=== PATIENT | male | born 1960 | race African-American/Black ===

== ENCOUNTER 2016-04-28 06:54 | Outpatient (CLI) ==
[2013-12-08 08:29] VITALS: BMI 31.0
[2016-04-28 07:51] LABS: ALBUMIN/GLOBULIN RATIO 1.29; ANION GAP 10.2; BILIRUBIN,TOTAL 0.98 mg/dL (0.00-1.20); BUN/CREATININE RATIO 17.24; CALCIUM 9.2 mg/dL (8.2-10.2); CREATININE 0.87 mg/dL (0.60-1.10); POTASSIUM 4.2 mmol/L (3.5-5.1); TOTAL PROTEIN 7.1 g/dL (6.4-8.2)
== END 2016-04-28 06:55 | disposition home or self-care (01) ==
LOC: LAB 06:54
PROVIDERS: ATTEND Family Medicine
DX: E80.6 Other disorders of bilirubin metabolism (principal)
CPT/HCPCS: 36415; 80053

== ENCOUNTER 2016-07-10 16:04 | Outpatient (CLI) ==
[2013-12-08 08:29] VITALS: BMI 31.0
[2016-07-10 16:28] LABS: BASOPHILS % (AUTO) 0.5 % (0.0-3.0); EOSINOPHILS # (AUTO) 0.2 K/ul (0.0-0.7); HEMATOCRIT 39.6 % (42.0-52.0); HEMOGLOBIN 13.4 g/dl (14.0-18.0); IMMATURE GRANULOCYTE % (AUTO) 0.2 % (0.0-5.0); LYMPHOCYTES # (AUTO) 1.7 K/uL (0.60-3.4); LYMPHOCYTES % (AUTO) 39.6 (10.0-50.0); MEAN CORPUSCULAR HEMOGLOBIN 30.6 pg (27.0-31.0); MEAN CORPUSCULAR HGB CONC 33.8 (31.8-35.4); MEAN CORPUSCULAR VOLUME 90.4 fl (80.0-94.0); MONOCYTES # (AUTO) 0.4 K/uL (0.4-2.0); MONOCYTES % (AUTO) 10.4 (0-10); NEUTROPHILS # (AUTO) 1.9 K/ul (2.0-6.9); NEUTROPHILS % (AUTO) 45.3; PLATELET COUNT 210 10^3/uL (140-440); RED BLOOD COUNT 4.38 10^6/ul (4.70-6.10); WHITE BLOOD COUNT 4.22 K/ul (4.2-10.2)
[2016-07-10 16:52] LABS: ALBUMIN 3.9 g/dL (3.4-5.0); ALBUMIN/GLOBULIN RATIO 1.15; ANION GAP 10.8; BILIRUBIN,TOTAL 0.82 mg/dL (0.00-1.20); BUN/CREATININE RATIO 17.04; CALCIUM 9.3 mg/dL (8.2-10.2); CHOL/HDL RATIO 2.7 (4.5-6.4); CREATININE 0.88 mg/dL (0.60-1.10); POTASSIUM 3.8 mmol/L (3.5-5.1); TOTAL PROTEIN 7.3 g/dL (6.4-8.2)
== END 2016-07-10 16:05 | disposition home or self-care (01) ==
LOC: LAB 16:04
PROVIDERS: ATTEND Family Medicine
DX: E78.5 Hyperlipidemia, unspecified (principal); I10 Essential (primary) hypertension; R73.9 Hyperglycemia, unspecified
CPT/HCPCS: 36415; 80053; 80061; 85025

== ENCOUNTER 2016-07-22 08:11 | Outpatient (CLI) ==
[2013-12-08 08:29] VITALS: BMI 31.0
--- NOTE | 2016-07-22 09:19 | DI ---
EXAM: Left knee, four views. HISTORY: Pain. COMPARISON: None. FINDINGS: AP, notch, sunrise and lateral views of the left knee. There are no acute or healing frac tures. There are no lytic or blastic lesions. Soft tissues are normal. There is no joint effusion . Joint narrowing and osteophyte formation is seen in all three compartments. IMPRESSION: 1. No acute fractures. 2. Tricompartmental osteoarthritis.
--- NOTE | 2016-07-22 09:22 | DI ---
EXAM: Right knee, four views. HISTORY: Right knee pain. Knee pain. COMPARISON: None. FINDINGS: AP , sunrise, notch and lateral views of the right knee. There are postoperative changes with hardware in the proximal tibia. The hardware appears intact. There is no surrounding lucency . There are no acute or healing fractures. There are no lytic or blastic lesions. There is no join t effusion. There is a large calcification in the quadriceps tendon. Joint narrowing and osteophyt e formation is seen in all three compartments. There is slight irregularity of the lateral tibial p lateau. Near bone on bone articulation is seen. IMPRESSION: 1. No acute fractures. 2. Tricompartmental osteoarthritis. Findings are most severe in the lateral compartment.
== END 2016-07-22 08:12 | disposition home or self-care (01) ==
LOC: LAB 08:11 → RAD 08:12
PROVIDERS: ATTEND Family Medicine
DX: M17.11 Unilateral primary osteoarthritis, right knee (principal); M25.562 Pain in left knee; M25.561 Pain in right knee

== ENCOUNTER 2016-08-18 10:16 | Outpatient (CLI) ==
[2016-08-18 10:29] VITALS: BMI 31.0
== END 2016-08-18 10:17 | disposition home or self-care (01) ==
LOC: AMBL 10:16
PROVIDERS: ATTEND Internal Medicine
DX: F41.0 Panic disorder [episodic paroxysmal anxiety] (principal)

== ENCOUNTER 2016-08-18 10:29 | Emergency (ER) ==
[2016-08-18 10:29] VITALS: BMI 31.0
[2016-08-18 10:40] VITALS: BP 135/78; TEMP 97.8
--- NOTE | 2016-08-18 11:22 | ED.PDOC ---
General ED Provider: Dr. EMILY BACA Chief Complaint: Psychiatric Complaint Stated Complaint: anxiety Time Seen by Physician: 10:40 (after an argument pt became vey anxious ) Mode of Arrival: Ambulance Information Source: Patient Exam Limitations: No limitations Primary Care Provider: HERNAN LAUREN Nursing and Triage Documentation Reviewed and Agree: Yes Review of Systems - Review Of Systems Constitutional: Reports: No symptoms Eyes: Reports: No symptoms Ears, Nose, Mouth, Throat: Reports: No symptoms Respiratory: Reports: No symptoms Cardiac: Reports: No symptoms GI: Reports: No symptoms : Reports: No symptoms Musculoskeletal: Reports: No symptoms Skin: Reports: No symptoms Neurological: Reports: Emotional problems Endocrine: Reports: No symptoms Hematologic/Lymphatic: Reports: No symptoms All Other Systems: Reviewed and Negative Past Medical History - Past Medical History Previously Healthy: No Endocrine: Reports: DM 2 Cardiovascular: Reports: Hypertension Respiratory: Reports: None Hematological: Reports: None Gastrointestinal: Reports: None Genitourinary: Reports: None Neuro/Psych: Reports: None Musculoskeletal: Reports: None Cancer: Reports: None - Surgical History General Surgical History: Reports: None - Family History Family History: Reports: None - Social History Smoking Status: Current some day smoker Hx Substance Use: No Alcohol Screening: None Physical Exam - Physical Exam Appearance: Well-appearing, No pain distress, Well-nourished Eyes: MISBAH, EOMI, Conjunctiva clear ENT: Ears normal, Nose normal, Oropharynx normal Respiratory: Airway patent, Breath sounds clear, Breath sounds equal, Respirations nonlabored Cardiovascular: RRR, Pulses normal, No rub, No murmur GI/: Soft, Nontender, No masses, Bowel sounds normal, No Organomegaly Musculoskeletal: Normal strength, ROM intact, No edema, No calf tenderness Skin: Warm, Dry, Normal color Neurological: Sensation intact, Motor intact, Reflexes intact, Cranial nerves intact, Alert, Oriented Psychiatric: Affect appropriate, Mood appropriate Critical Care Note - Critical Care Note Total Time (mins): 0 Course - Course Vital Signs: Temp Pulse Resp BP Pulse Ox 08/18/16 10:36 97.8 F 74 16 135/78 96 Departure - Departure Time of Disposition: 11:22 Disposition: HOME SELF-CARE Discharge Problem: Anxiety Instructions: Anxiety (ED) Condition: Good Pt referred to PMD for follow-up: No Additional Instructions: Please call your Family Physician as soon as possible to schedule a follow-up appointment. Allergies/Adverse Reactions: Allergies Iodinated Contrast Media - Oral and [Iodinated Contrast Media - IV Dye] Adverse Reaction (Verified 08/18/16 10:32) Home Medications: Ambulatory Orders Aspirin [Aspirin EC] 81 mg PO DAILYWM 08/18/16 Metformin HCl [Glucophage] 500 mg PO BID 08/18/16 Metoprolol Tartrate [Lopressor] 25 mg PO DAILY 08/18/16 Paroxetine HCl [Paxil] 20 mg PO DAILY 08/18/16
== END 2016-08-18 11:24 | disposition home or self-care (01) ==
LOC: ED 10:29
DX: F41.9 Anxiety disorder, unspecified (principal); F17.210 Nicotine dependence, cigarettes, uncomplicated
CPT/HCPCS: 99283

== ENCOUNTER 2016-11-14 14:54 | Outpatient (RCR) ==
--- NOTE | 2016-11-15 11:26 | RS.OPPTEV2 ---
Date of Note: 11/14/16 Visit #: 1 Date of Evaluation: 11/14/16 Payer Source: Medicaid Treatment Diagnosis: Bilateral knee pain History of Condition/Mechanism of Injury:: Patient reports progressive bilateral knee pain. States he had two different surgeries to the right knee in 1974 and 1978 for ligament and cartilage damage. Prior Level of Function.....Patient was independent with: ADL's, Self Care, Work /Vocation, Caregiving, Ambulation/Mobility, Community Integration/Access Functional Limitations: Standing, Bending, Squatting, Ambulation, Community Access/Integration Current Subjective/complaints:: Patient reports bilateral knee pain and stiffness. States the right knee bothers him worse. He has more pain with certain weather conditions. States he has had more pain in both knees since working on a roof 2-3 months ago. He had to climb up and down a ladder, which bothered his knees. States he rides a motorcycle and he has to be able to move his feet back to engage the brake. States stiffness in his knees makes that difficult if he has been riding very long. States soaking in warm water or keeping his knees warm, help ease knee pain. Reports pain if he steps a certain way. States the right knee will lock up at times. He is hoping to gain strength in his knees so that the right LE will have straighter alignment. States his right leg is smaller and weaker. States he usually walks without an assistive device, but does use a cane if he has walked or sat for a long amount of time. Reports his low back bothers him frequently depending on his activity level. 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 Treatment Side (optional): Bilateral Medical History Medical History: Hypertension, Diabetes, Arthritis Smoking Status: Current some day smoker Hx Home Medications: None provided Patient's Goals: His goal is to gain strength in his legs and be able to ride his motorcycle and return to other activities without having difficulty or pain. Pain Assessment - Pain Description Pain Location: right and left knee joints Current Pain Intensity: 5/10 Worst Pain Intensity: 10/10 Functional Outcome Measure LE Functional Scale: 42 (42/80=47.5% impairment) - G Codes & Severity Modifier G Codes & Modifier: NA Source of G Code score: NA Observation - Observation Posture: Forward Head, Rounded Shoulders, Decreased Lumbar Lordosis Comments: Demonstrates genu valgus at the right knee and slight genu varus of the left knee, with mild to moderate pes planus of bilateral ankles. Gait - Gait Pattern Gait Comments: Patient ambulates without an assistive device, with decreased stance on the right LE and decreased right knee flexion during swing phase. - Left Knee ROM Left Knee Extension: -3 degrees from full extension Left Knee Flexion: 120 (degrees AROM) Comments: 130 degrees PROM by patient - Right Knee ROM Right Knee Extension: -18 degrees from full extension Right Knee Flexion: 109 (degrees AROM) Knee ROM Limitations: Soft Tissue Tightness, Pain - Left Knee Strength Left Knee Extension: 5 Normal Left Knee Flexion: 5 Normal Comments: Left hip 4+ to 5/5 throughout. - Right Knee Strength Right Knee Extension: 4+ Good + Right Knee Flexion: 4 Good Comments: Right hip strength 4+/5. - Special Tests Knee Anterior Drawer Test: Negative Left, Negative Right Knee Posterior Drawer Test: Negative Left, Negative Right Knee Valgus Stress Test: Negative Left, Negative Right Knee Varus Stress Test: Negative Left, Negative Right Knee Xander Test: Negative Left, Positive Right Patella Apprehension Test: Negative Left, Positive Right Palpation Comments:: Patient reports tenderness with palpation to the distal patella tendon and medial knee joint region on the left LE. Reports tenderness to the medial and lateral joint line of the right knee joint. Sensation - Sensation Right Lower Extremity: Intact/Normal Left Lower Extremity: Intact/Normal Additional Comments: Additional Comments: Bilateral LE HS are very tight. Right LE is excessively tight, as he does not have full knee extension. Left SLR in supine is to 30-35 degrees. Interventions - Exercise/Activities/Manual Therapy Exercises/Activities: Patient instructed in multi directional SLR lying down, hip flexion, abd, add, and extension. Recommended patient wear a shoe insert with a good arch support to decrease stress on the medial region of his ankles and knees, especially the right. Also strongly encouraged Mr. Posadas to avoid twisting his body while keeping his feet planted. Manual Therapy: NA HOME EXERCISE PROGRAM: multi directional SLR lying down, hip flexion, abd, add, and extension - Charges Total Direct Minutes: 55 mins Total Treatment Time: 55 mins Procedures billed for this date of service:: DANETTE Philippe Assessment Assessment: Patient presents to therapy with a diagnosis of Tricompartmental osteoarthritis of the left knee and s/p right knee replacement. Patient clarified that he has not had a TKA of the right knee. Order also lists Mild degenerative disc displacement of Lumbosacral region. Patient mentions back pain approximately 3/[address] through the evaluation today. I did not realize his low back was listed on the order until after he was gone today. He demonstrates tight HS bilaterally and we discussed the need to stretch the HS and how that would also help take stress off the lumbar spine. Patient demonstrates the need for strengthening of both LE's to reduce pain from arthritis. Addressing HS tightness should also help him gain more right knee extension and improve the mechanics of both knees. He also demonstrates possible involvement of meniscus in the right knee from his subjective reports and positive Xander test. He demonstrates good potential to benefit from skilled therapy to get some relief of knee and back pain. Patient Education: Education of diagnosis, Body/Joint mechanics, Home Exercise Program, Home Safety, Activity Modification, Education of Plan of Care Rehab Potential: Good Short Term Goals Goal #1: Pt independent & compliant with initial HEP. Goal to be met by: 11/29/16 Goal #2: Right knee extension to -5 degrees actively. Goal to be met by: 11/29/16 Goal #3: Right quad strength 5/5. Goal to be met by: 11/29/16 Goal #4: Left SLR to 45 degrees. Goal to be met by: 11/29/16 Autographer Goals Goal #1: Pt knows HEP and to continue ex's to maintain level of function at D/C. Goal to be met by: 12/20/16 Goal #2: Score on LE functional scale improved to 60/80. Goal to be met by: 12/20/16 Goal #3: Pt able to tolerate prolonged sitting/walking with min. knee & back pain. Goal to be met by: 12/20/16 Goal #4: Pt able to ride his motorcycle with minimal knee stiffness or pain. Goal to be met by: 12/20/16 Plan - Treatment to be Provided Procedures: Therapeutic Exercises, Therapeutic Activity, Gait Training, Manual Therapy, Patient Education Modalities: Electrical Stimulation, Ultrasound/Phonophoresis, Cryotherapy, Hot Packs - Treatment Plan Frequency: 3 X week Duration: 3 weeks ORDER # VISITS AND/OR THROUGH DATE: 12/20/16 - Treatment Code (1) Knee pain Qualifiers: Chronicity: unspecified Laterality: bilateral Qualified Description : Pain in both knees, unspecified chronicity Qualifier Code(s): (M25.561) Pain in right knee (2) Tricompartment osteoarthritis of knees, bilateral Comments: M17.0 (3) Low back pain Qualifiers: Chronicity: unspecified Back pain laterality: unspecified Sciatica presence: unspecified whether sciatica present Qualified Description: Low back pain, unspecified back pain laterality, unspecified chronicity, with sciatica presence unspecified Qualifier Code(s): (M54.5) Low back pain (4) Degenerative disc disease, lumbar Comments: M51.36
== END 2016-11-20 ==
PROVIDERS: ATTEND Family Medicine
DX: M17.12 Unilateral primary osteoarthritis, left knee (principal); Z96.651 Presence of right artificial knee joint; M51.37 Other intervertebral disc degeneration, lumbosacral region

== ENCOUNTER 2016-12-15 15:30 | Outpatient (RCR) ==
--- NOTE | 2016-11-24 08:46 | RS.CXNS ---
Date of scheduled appointment: 11/21/16 Type: No Show Reason for Cancel/NS: Unknown
--- NOTE | 2016-11-24 16:35 | RS.OPPTDN ---
Subjective Date of Note: 11/24/16 Visit #: 2 Date of Evaluation: 11/14/16 Payer Source: Medicaid Treatment Diagnosis: Bilateral knee pain Current Subjective/complaints:: Reports his work is very physical,and he tries to protect the back and knees the best he can. Pain Assessment - Pain Description Pain Location: right and left knee joints Pain Description: Tightness, Sharp, Aching Current Pain Intensity: 5/10 - Heat/Cryotherapy Treatment: Hot Pack, Cryotherapy (20 mins. to back,cold pack toboth knees) Interventions - Exercise/Activities/Manual Therapy Exercises/Activities: 40 mins. of LE and back stretches and strengthening, including ankle pumps,QS,SLR's heelslides,SKTC,DKTC piriformis stretches.Lower trunk rotation. Total minutes of Exercise: 40 Manual Therapy: NA Total minutes of Manual Therapy: 0 HOME EXERCISE PROGRAM: multi directional SLR lying down, hip flexion, abd, add, and extension - Charges Total Direct Minutes: 40 Total Treatment Time: 60 Procedures billed for this date of service:: hp,ex 3 Assessment: Patient has moderate tightness in bilateral hamstrings,and piriformis.He has sudden L knee pain consistently today when initiating SLR' s.He undersatnds to do all exercises in PAIN FREE ROM. Patient Education: Education of diagnosis, Body/Joint mechanics, Home Exercise Program, Home Safety, Activity Modification, Education of Plan of Care Short Term Goals Goal #1: Pt independent & compliant with initial HEP. Goal to be met by: 11/29/16 Progress towards Goal:: Progressing Goal #2: Right knee extension to -5 degrees actively. Goal to be met by: 11/29/16 Goal #3: Right quad strength 5/5. Goal to be met by: 11/29/16 Goal #4: Left SLR to 45 degrees. Goal to be met by: 11/29/16 Hydrogenation Still Operator Goals Goal #1: Pt knows HEP and to continue ex's to maintain level of function at D/C. Goal to be met by: 12/20/16 Goal #2: Score on LE functional scale improved to 60/80. Goal to be met by: 12/20/16 Goal #3: Pt able to tolerate prolonged sitting/walking with min. knee & back pain. Goal to be met by: 12/20/16 Goal #4: Pt able to ride his motorcycle with minimal knee stiffness or pain. Goal to be met by: 12/20/16 Plan PLAN OF CARE EXPIRES ON:: 12/20/16 ORDER # VISITS AND/OR THROUGH DATE: 12/20/16 PLAN: Continue Plan of Care
--- NOTE | 2016-11-29 09:15 | RS.OPPTDN ---
Subjective Date of Note: 11/28/16 Visit #: 3 Date of Evaluation: 11/14/16 Payer Source: Medicaid Treatment Diagnosis: Bilateral knee pain Current Subjective/complaints:: Dc reports relief into the next day after the last PT session.The R knee is hurting more today. Pain Assessment - Pain Description Pain Location: right and left knee joints Pain Description: Tightness, Sharp, Aching Current Pain Intensity: 5 - 7/10 - Heat/Cryotherapy Treatment: Hot Pack (heat to lumbar,cold to both knees.), Cryotherapy (ehat to ) Interventions - Exercise/Activities/Manual Therapy Exercises/Activities: 35 mins. of LE and back stretches and strengthening, including ankle pumps,QS,SLR's heelslides,SKTC,DKTC piriformis stretches.Lower trunk rotation. Total minutes of Exercise: 35 Manual Therapy: NA Total minutes of Manual Therapy: 0 HOME EXERCISE PROGRAM: multi directional SLR lying down, hip flexion, abd, add, and extension,low back stretches. - Charges Total Direct Minutes: 35 Total Treatment Time: 55 Procedures billed for this date of service:: hp,e-stim,ex 2 Assessment: Patient has improved control of eccentric motions today with doing SLR's,and less knee pain present in the L knee.The R knee has consistent crepitus present with flexion today.He has better undestanding of the open chain vs. closed chain exercises to protect the knee joint. Patient Education: Education of diagnosis, Body/Joint mechanics, Home Exercise Program, Home Safety, Activity Modification, Education of Plan of Care Short Term Goals Goal #1: Pt independent & compliant with initial HEP. Goal to be met by: 11/29/16 Progress towards Goal:: Progressing Goal #2: Right knee extension to -5 degrees actively. Goal to be met by: 11/29/16 Progress towards Goal:: Progressing Goal #3: Right quad strength 5/5. Goal to be met by: 11/29/16 Progress towards Goal:: Progressing Goal #4: Left SLR to 45 degrees. Goal to be met by: 11/29/16 Intermediate Goals Goal #1: Pt knows HEP and to continue ex's to maintain level of function at D/C. Goal to be met by: 12/20/16 Progress towards goal: Progressing Goal #2: Score on LE functional scale improved to 60/80. Goal to be met by: 12/20/16 Goal #3: Pt able to tolerate prolonged sitting/walking with min. knee & back pain. Goal to be met by: 12/20/16 Progress towards goal: Progressing Goal #4: Pt able to ride his motorcycle with minimal knee stiffness or pain. Goal to be met by: 12/20/16 Progress towards goal: Progressing Plan PLAN OF CARE EXPIRES ON:: 12/20/16 ORDER # VISITS AND/OR THROUGH DATE: 12/20/16 PLAN: Continue Plan of Care
--- NOTE | 2016-12-01 15:58 | RS.CXNS ---
Date of scheduled appointment: 12/01/16 Type: No Show (Unknown)
--- NOTE | 2016-12-11 07:41 | RS.OPPTDN ---
Subjective Date of Note: 12/08/16 Visit #: 4 Date of Evaluation: 11/14/16 Payer Source: Medicaid Treatment Diagnosis: Bilateral knee pain Current Subjective/complaints:: Patient feels the therapy is helping him. Pain Assessment - Pain Description Pain Location: right and left knee joints Pain Description: Tightness, Sharp, Aching Current Pain Intensity: not rated - Heat/Cryotherapy Treatment: Hot Pack, Cryotherapy (20 mins. heat to back,cold to knees) Interventions - Exercise/Activities/Manual Therapy Exercises/Activities: 40 mins. of LE and back stretches ,and return demo of HEP, including pelvic tilts,SKTC,DKTC,90/90 hamstring stretches,piriformis stretches, SAQ,SLR,standing hams. curls,hip abd/add.,lower trunk rotation,side-lying hip abduction. Total minutes of Exercise: 40 Manual Therapy: NA Total minutes of Manual Therapy: 0 HOME EXERCISE PROGRAM: multi directional SLR lying down, hip flexion, abd, add, and extension,low back stretches. - Charges Total Direct Minutes: 40 Total Treatment Time: 60 Procedures billed for this date of service:: cp,hp,ex 2 Assessment: Patient has good understanding and return demo of HEP copies given to him today.He has improved hamstring extensibility after stretches today.His pain level varies dependent upon his work activities,and how long he is on his feet.The R knee arthritic pain is greater than the L today,but both knees have crepitus present with active motion. Patient Education: Body/Joint mechanics, Home Exercise Program, Education of Plan of Care Patient demonstrates compliance with HEP?: Yes Short Term Goals Goal #1: Pt independent & compliant with initial HEP. Goal to be met by: 11/29/16 Progress towards Goal:: Partially Met Goal #2: Right knee extension to -5 degrees actively. Goal to be met by: 11/29/16 Progress towards Goal:: Progressing Goal #3: Right quad strength 5/5. Goal to be met by: 11/29/16 Progress towards Goal:: Progressing Goal #4: Left SLR to 45 degrees. Goal to be met by: 11/29/16 Casting Tester Goals Goal #1: Pt knows HEP and to continue ex's to maintain level of function at D/C. Goal to be met by: 12/20/16 Progress towards goal: Partially Met Goal #2: Score on LE functional scale improved to 60/80. Goal to be met by: 12/20/16 Goal #3: Pt able to tolerate prolonged sitting/walking with min. knee & back pain. Goal to be met by: 12/20/16 Progress towards goal: Progressing Goal #4: Pt able to ride his motorcycle with minimal knee stiffness or pain. Goal to be met by: 12/20/16 (not dsicussed today) Plan PLAN OF CARE EXPIRES ON:: 12/20/16 ORDER # VISITS AND/OR THROUGH DATE: 12/20/16 PLAN: Continue Plan of Care
--- NOTE | 2016-12-15 16:42 | RS.OPPTDN ---
Subjective Date of Note: 12/15/16 Visit #: 5 Date of Evaluation: 11/14/16 Payer Source: Medicaid Treatment Diagnosis: Bilateral knee pain Current Subjective/complaints:: Patient reports the back feels better,but the knees are painful most of the time . Pain Assessment - Pain Description Pain Location: right and left knee joints Pain Description: Tightness, Sharp, Aching Current Pain Intensity: not rated Interventions - Exercise/Activities/Manual Therapy Exercises/Activities: 40 mins. of LE and back stretches ,and return demo of HEP, including pelvic tilts,SKTC,DKTC,90/90 hamstring stretches,piriformis stretches, SAQ,SLR,standing hams. curls,hip abd/add.,lower trunk rotation,side-lying hip abduction. Total minutes of Exercise: 40 Manual Therapy: NA Total minutes of Manual Therapy: 0 HOME EXERCISE PROGRAM: multi directional SLR lying down, hip flexion, abd, add, and extension,low back stretches. - Charges Total Direct Minutes: 40 Total Treatment Time: 40 Procedures billed for this date of service:: ex 3 Assessment: Patient continues to have improved lumbar flexibility,also responds to hamstring stretches better today.He has crepitus present in both knees. Patient Education: Education of Plan of Care Patient demonstrates compliance with HEP?: Yes Short Term Goals Goal #1: Pt independent & compliant with initial HEP. Goal to be met by: 11/29/16 Progress towards Goal:: Partially Met Goal #2: Right knee extension to -5 degrees actively. Goal to be met by: 11/29/16 Progress towards Goal:: Progressing Goal #3: Right quad strength 5/5. Goal to be met by: 11/29/16 Progress towards Goal:: Progressing Goal #4: Left SLR to 45 degrees. Goal to be met by: 11/29/16 Progress towards Goal:: Met Lead Rider Goals Goal #1: Pt knows HEP and to continue ex's to maintain level of function at D/C. Goal to be met by: 12/20/16 Progress towards goal: Partially Met Goal #2: Score on LE functional scale improved to 60/80. Goal to be met by: 12/20/16 Goal #3: Pt able to tolerate prolonged sitting/walking with min. knee & back pain. Goal to be met by: 12/20/16 Progress towards goal: Progressing Goal #4: Pt able to ride his motorcycle with minimal knee stiffness or pain. Goal to be met by: 12/20/16 (not dsicussed today) Plan PLAN OF CARE EXPIRES ON:: 12/20/16 ORDER # VISITS AND/OR THROUGH DATE: 12/20/16 PLAN: Continue Plan of Care
--- NOTE | 2016-12-19 15:38 | RS.QUICKDC ---
Discharge from PT Date of Discharge: 12/19/16 Number of Visits: 5 Reason for Discharge: Patient has written HEP for strengthening and flexibility, has good understanding of exercises,joint protection and body mechanics.He called and cancelled today's last appt,did not give reason.His current therapy order expires tomorrow,and he is aware of today's D/C plan.
== END 2016-12-21 ==
PROVIDERS: ATTEND Family Medicine
DX: M17.0 Bilateral primary osteoarthritis of knee (principal); M25.561 Pain in right knee; M25.562 Pain in left knee; M51.36 Other intervertebral disc degeneration, lumbar region; Z96.651 Presence of right artificial knee joint

== ENCOUNTER 2017-01-29 06:15 | Outpatient (CLI) ==
[2017-01-29 06:32] LABS: BASOPHILS % (AUTO) 0.8 % (0.0-3.0); EOSINOPHILS # (AUTO) 0.2 K/ul (0.0-0.7); EOSINOPHILS % (AUTO) 5.4 % (0.0-7.0); HEMOGLOBIN 13.6 g/dl (14.0-18.0); LYMPHOCYTES # (AUTO) 1.6 K/uL (0.60-3.4); LYMPHOCYTES % (AUTO) 44.2 (10.0-50.0); MEAN CORPUSCULAR HEMOGLOBIN 31.1 pg (27.0-31.0); MEAN CORPUSCULAR VOLUME 91.5 fl (80.0-94.0); MONOCYTES # (AUTO) 0.4 K/uL (0.4-2.0); MONOCYTES % (AUTO) 12.1 (0-10); NEUTROPHILS # (AUTO) 1.3 K/ul (2.0-6.9); NEUTROPHILS % (AUTO) 37.5; PLATELET COUNT 188 10^3/uL (140-440); RED BLOOD COUNT 4.37 10^6/ul (4.70-6.10); WHITE BLOOD COUNT 3.55 K/ul (4.2-10.2)
[2017-01-29 06:50] LABS: ALBUMIN 3.7 g/dL (3.4-5.0); ALBUMIN/GLOBULIN RATIO 1.06; ANION GAP 11.9; BILIRUBIN,TOTAL 0.96 mg/dL (0.00-1.20); BUN/CREATININE RATIO 13.79; CALCIUM 9.2 mg/dL (8.2-10.2); CHOL/HDL RATIO 3.2 (4.5-6.4); CREATININE 0.87 mg/dL (0.60-1.10); POTASSIUM 3.9 mmol/L (3.5-5.1); TOTAL PROTEIN 7.2 g/dL (6.4-8.2)
[2017-01-29 17:22] LABS: BILIRUBIN,URINE Negative (NEGATIVE); KETONES,URINE Trace (NEGATIVE); LEUKOCYTE ESTERASE ,URINE Negative (NEGATIVE); NITRITE,URINE Negative (NEGATIVE); PROTEIN,URINE Negative (NEGATIVE); URINE, BLOOD Negative (NEGATIVE)
[2017-01-29 17:23] LABS: ADD URINE MICROSCOPIC NO
== END 2017-01-29 06:16 | disposition home or self-care (01) ==
LOC: LAB 06:15
PROVIDERS: ATTEND Family Medicine
DX: I10 Essential (primary) hypertension (principal); E78.5 Hyperlipidemia, unspecified; R73.9 Hyperglycemia, unspecified; M19.90 Unspecified osteoarthritis, unspecified site; F41.1 Generalized anxiety disorder; D70.9 Neutropenia, unspecified; Z79.899 Other long term (current) drug therapy
CPT/HCPCS: 36415; 80053; 80061; 81001; 85025

== ENCOUNTER 2017-06-22 07:24 | Outpatient (CLI) | END 2017-06-22 07:25 | disposition home or self-care (01) | LOC: LAB 07:24 | PROVIDERS: ATTEND Family Medicine | DX: E78.5 Hyperlipidemia, unspecified (principal); I10 Essential (primary) hypertension; R73.9 Hyperglycemia, unspecified; Z00.00 Encounter for general adult medical examination without abnormal findings; D70.9 Neutropenia, unspecified | CPT/HCPCS: 36415; 80053; 80061; 80306; 83036; 84439; 84443; 85025 ==

== ENCOUNTER 2017-11-09 07:17 | Outpatient (CLI) | END 2017-11-09 07:18 | disposition home or self-care (01) | LOC: LAB 07:17 | PROVIDERS: ATTEND Family Medicine | DX: E78.5 Hyperlipidemia, unspecified (principal); I10 Essential (primary) hypertension; R73.9 Hyperglycemia, unspecified; M19.90 Unspecified osteoarthritis, unspecified site; F41.1 Generalized anxiety disorder; Z79.899 Other long term (current) drug therapy | CPT/HCPCS: 36415; 80053; 80061; 81001; 85025 ==

== ENCOUNTER 2018-02-15 08:00 | Outpatient (RCR) ==
--- NOTE | 2018-01-24 14:41 | RS.OPPTEV2 ---
Date of Note: 01/24/18 Visit #: 1 Date of Evaluation: 01/24/18 Payer Source: Medicaid Surgery Performed?: No Treatment Diagnosis: Low Back Pain History of Condition/Mechanism of Injury:: pt states that he has had back pain for approx 5 yrs and has recently gotten worse. He has not had any imaging for this issue Prior Level of Function.....Patient was independent with: ADL's, Self Care, Work /Vocation, Caregiving, Ambulation/Mobility, Community Integration/Access Functional Limitations: Standing, Bending, Squatting, Ambulation, Community Access/Integration Current Subjective/complaints:: pt states he has pain in center of low back that occasionally radiates into BLE but currently no radiating pain. pt states he is trying to get back to work. Treatment Side (optional): N/A *Precautions: n/a Medical History Medical History: Hypertension, Diabetes, Arthritis Surgical History Comments:: carpal tunnel surgery, 2 knee surgeries Smoking Status: Current some day smoker Hx Home Medications: metformin, paxil Patient's Goals: decrease pain Pain Assessment - Pain Description Pain Location: lumbar area Pain Description: Aching Current Pain Intensity: 5/10 Other Comments regarding Pain:: pain increases with standing for long periods Functional Outcome Measure Oswestry LBP: 17 (34%) - G Codes & Severity Modifier G Codes & Modifier: n/a Source of G Code score: n/a Observation - Observation Posture: Forward Head, Rounded Shoulders, Decreased Lumbar Lordosis Handedness: Right Gait - Gait Pattern Gait Comments: pt amb with varus deformity BLE L worse than R. pt amb with antalgic gait pattern due to pain in RLE. General Range of Motion: BUE WFL's. BLE WFL's Muscle Strength: BUE grossly 5/5. BLE grossly 5/5 - ROM Lumbar Flexion: Hand reach to Mid-Thighs Sidebending to Left: Reach to Mid-thigh Sidebending to Right: Reach to Lateral Joint Line Lumbar Spine ROM Limitations: Soft Tissue Tightness, Muscle Weakness, Pain Comments: pt reports increased pain with flex and L lat side bending. - Strength Trunk Extension: 4- Good- Trunk Flexion: 3+ Fair+ Trunk Lateral Flexion: 3- Fair- - Special Tests SLR Test: Negative Left, Negative Right Seated Dural Stretch Test: Negative Left, Negative Right Palpation Palpation Findings: Tenderness, Trigger Point, Muscle Guarding Comments:: muscle guarding and tenderness noted B lumbar paraspinals worse on L. Trigger points noted in L paraspinals. Sensation - Sensation Right Upper Extremity: Intact/Normal Left Upper Extremity: Intact/Normal Right Lower Extremity: Impaired (n/t lat to knee) Left Lower Extremity: Intact/Normal Balance - Sitting Balance Static Sitting Balance: Normal Dynamic Sitting Balance: Normal - Standing Balance Static Standing Balance: Normal Dynamic Standing Balance: Normal - Treatment Modality: Electrical Stim Unattended Parameters/Method Applied: IFC x 20 mins at 14ma Treatment Area: lumbar spine Patient Position: Left Sidelying - Heat/Cryotherapy Treatment: Hot Pack Comments:: lumbar spine Interventions - Exercise/Activities/Manual Therapy Exercises/Activities: pt performed hamstring stretch, piriformis stretch,knee to chest and prone lying. Manual Therapy: NA HOME EXERCISE PROGRAM: pt given written HEP including prone lying, hamstring stretch, prone lying - Charges Timed Code Treatment Minutes: 46 Total Treatment Time: 62 Procedures billed for this date of service:: eval med, estim unattended, hot pack EVALUATION COMPLEXITY LEVEL EVALUATION COMPLEXITY LEVEL: HISTORY: Medium (OA,HTN, DM, LBP), EXAM OF BODY SYSTEMS: Medium (pain, muscle tightness, weakness, ), CLINICAL PRESENTATION: Medium, CLINICAL DECISION MAKING: Medium Assessment Assessment: pt presents with decreased strength, balance as well as pain in lumbar spine occasionally she she has tj Patient Education: Home Exercise Program, Education of Plan of Care Rehab Potential: Good Short Term Goals Goal #1: Pt independent initial HEP. Goal to be met by: 02/08/18 Goal #2: pt rate pain <5/10 with activity Goal to be met by: 02/08/18 Goal #3: Decreased muscle tightness hamstrings , piroformis to equal BLE Goal to be met by: 02/08/18 Goal #4: pt report no episodes of radicular pain in BLE Goal to be met by: 02/08/18 Progress towards Goal:: Met Bi Manager Goals Goal #1: pt report ability to perform normal house hold duties w less pain Goal to be met by: 02/22/18 Goal #2: Oswestry low back pain scale < 17 Goal to be met by: 02/22/18 Goal #3: Hamstring and piriformis tightness WFL's Goal to be met by: 02/22/18 Plan - Treatment to be Provided Procedures: Therapeutic Exercises, Therapeutic Activity, Gait Training, Manual Therapy, Patient Education Modalities: Electrical Stimulation, Ultrasound/Phonophoresis, Cryotherapy, Hot Packs - Treatment Plan Frequency: 2 X week Duration: 4 weeks ORDER # VISITS AND/OR THROUGH DATE: 02/22/18 - Treatment Code (1) Muscle tightness Code(s): M62.89 - OTHER SPECIFIED DISORDERS OF MUSCLE (2) Low back pain Code(s): M54.5 - LOW BACK PAIN Qualifiers: Chronicity: unspecified Back pain laterality: unspecified Sciatica presence: unspecified whether sciatica present Qualified Code(s): M54.5 - Low back pain
--- NOTE | 2018-01-30 13:28 | RS.OPPTDN ---
Subjective Date of Note: 01/30/18 Visit #: 2 Date of Evaluation: 01/24/18 Payer Source: Medicaid Treatment Diagnosis: Low Back Pain Current Subjective/complaints:: Patient reports moderate pain this morning. States his LBP increases with activities at work. Reports mininal discomfort follwoing treatment today. He also reported he has not performed exercises with exception of prone lying that causes increased pain. *Precautions: n/a Pain Assessment - Pain Description Pain Location: Lowback Current Pain Intensity: 5/10 prior to, min following - Treatment Modality: Electrical Stim Unattended Parameters/Method Applied: [id number] HVGC to 210p.v. with 4 large pads cross current to the bilateral lumbar paraspinals with HP prior to EX. Patient Position: Supine - Heat/Cryotherapy Treatment: Hot Pack (with Estim) Interventions - Exercise/Activities/Manual Therapy Exercises/Activities: Patient assisted with hamstring stretch, piriformis stretch, and knee to chest. Began isometric hip flexion and pelvic tilts. Patient education of dx, spinal mechanics, proper body mechanics and safety, and HEP. Patient given copies of new exercises. Total minutes of Exercise: 12mins Manual Therapy: NA HOME EXERCISE PROGRAM: pt given written HEP including prone lying, hamstring stretch, prone lying (witheld 01/30/18). Isometric hip flexion and pelvic tilt - Charges Timed Code Treatment Minutes: 12mins Total Treatment Time: 36mins Procedures billed for this date of service:: HP, Estim unattended, EX Assessment: Patient will need to consistently attend therapy and work on HEP to reduce pain and increase functional activity. Patient Education: Education of diagnosis, Body/Joint mechanics, Home Exercise Program, Home Safety, Activity Modification Comments: Patient advised that he is to work on HEP a minimum of 2-3 times per day as instructed. Patient demonstrates compliance with HEP?: No Short Term Goals Goal #1: Pt independent initial HEP. Goal to be met by: 02/08/18 Progress towards Goal:: Not Met Goal #2: pt rate pain <5/10 with activity Goal to be met by: 02/08/18 Goal #3: Decreased muscle tightness hamstrings , piroformis to equal BLE Goal to be met by: 02/08/18 Goal #4: pt report no episodes of radicular pain in BLE Goal to be met by: 02/08/18 Progress towards Goal:: Met Bandoleer Straightener Stamper Goals Goal #1: pt report ability to perform normal house hold duties w less pain Goal to be met by: 02/22/18 Goal #2: Oswestry low back pain scale < 17 Goal to be met by: 02/22/18 Goal #3: Hamstring and piriformis tightness WFL's Goal to be met by: 02/22/18 Goal #4: Pt able to ride his motorcycle with minimal knee stiffness or pain. Goal to be met by: 02/22/18 (not dsicussed today) Plan PLAN OF CARE EXPIRES ON:: 02/22/18 ORDER # VISITS AND/OR THROUGH DATE: 02/22/18 PLAN: Continue modalities and progress exercise to reduce pain and increase functional activity level.
--- NOTE | 2018-02-01 11:10 | RS.CXNS ---
Date of scheduled appointment: 02/01/18 Type: No Show
--- NOTE | 2018-02-11 10:02 | RS.OPPTDN ---
Subjective Date of Note: 02/11/18 Visit #: 3 Number of visits approved by Insurance: 6 Date of Evaluation: 01/24/18 Payer Source: Medicaid Treatment Diagnosis: Low Back Pain Current Subjective/complaints:: Patient reports doing the HEP,but is having a hard time doing them routinely.This SPEECH LANGUAGE PATHOLOGY ASSISTANT recommended 2x/day,early AM and then later evening,just before bed. *Precautions: n/a Pain Assessment - Pain Description Pain Location: lumbar Pain Description: Dull, Aching, Chronic Current Pain Intensity: 3 - Treatment Modality: Electrical Stim Unattended Parameters/Method Applied: 20 mins. IFC @ 15 to lumbar Patient Position: Right Sidelying - Heat/Cryotherapy Treatment: Hot Pack (concurrent with e-stim) Interventions - Exercise/Activities/Manual Therapy Exercises/Activities: 20 mins. pelvic tilts,SKTC,DKTC,90/90 hams. stretch,LTR in hooklying position. Total minutes of Exercise: 20 Manual Therapy: NA Total minutes of Manual Therapy: 20 HOME EXERCISE PROGRAM: pt given written HEP including prone lying, hamstring stretch, prone lying (witheld 01/30/18). Isometric hip flexion and pelvic tilt - Charges Timed Code Treatment Minutes: 40 Total Treatment Time: 40 Procedures billed for this date of service:: hp,e-stim ,ex 1 Assessment: Patient reports relief after stretches,has improved hamstring extensibility,R side is slightly tighter than the L.He has normal gait pattern exiting the clinic today. Patient Education: Education of diagnosis, Body/Joint mechanics, Home Exercise Program, Home Safety, Activity Modification, Education of Plan of Care Patient demonstrates compliance with HEP?: Yes Short Term Goals Goal #1: Pt independent initial HEP. Goal to be met by: 02/08/18 Progress towards Goal:: Not Met Goal #2: pt rate pain <5/10 with activity Goal to be met by: 02/08/18 Progress towards Goal:: Partially Met Goal #3: Decreased muscle tightness hamstrings , piriformis to equal BLE Goal to be met by: 02/08/18 Progress towards Goal:: Progressing Goal #4: pt report no episodes of radicular pain in BLE Goal to be met by: 02/08/18 Progress towards Goal:: Met Retirement Goals Goal #1: pt report ability to perform normal house hold duties w less pain Goal to be met by: 02/22/18 Progress towards goal: Progressing Goal #2: Oswestry low back pain scale < 17 Goal to be met by: 02/22/18 Goal #3: Hamstring and piriformis tightness WFL's Goal to be met by: 02/22/18 Progress towards goal: Progressing Goal #4: Pt able to ride his motorcycle with minimal knee stiffness or pain. Goal to be met by: 02/22/18 (not dsicussed today) Progress towards goal: Progressing Plan Dates of Herbarium Worker Goals: 02/22/18 Expiration date of current Insurance Approval:: 02/23/18 PLAN: Cont. PT tp return patient to PLOF.
--- NOTE | 2018-02-15 08:59 | RS.OPPTDN ---
Subjective Date of Note: 02/15/18 Visit #: 4 Number of visits approved by Insurance: 6 Date of Evaluation: 01/24/18 Payer Source: Medicaid Treatment Diagnosis: Low Back Pain Current Subjective/complaints:: Patient reports trying to do exercises when he has time ,but does feel better.I discussed to try to do exercises on a regualr basis,possibly early AM ,then jsut before going to sleep.He reports prone exercises increase his pain. *Precautions: n/a Pain Assessment - Pain Description Pain Location: lumbar Pain Description: Dull, Aching Current Pain Intensity: 2 - Treatment Modality: Electrical Stim Unattended Parameters/Method Applied: 20 mins. high volt,185-195 pv,2 large electrodes to lumbar. Patient Position: Right Sidelying - Heat/Cryotherapy Treatment: Hot Pack (concurrent with e-stim) Interventions - Exercise/Activities/Manual Therapy Exercises/Activities: 20 mins. pelvic tilts,SKTC,DKTC,90/90 hams. stretch,LTR in hooklying position. Total minutes of Exercise: 20 Manual Therapy: NA Total minutes of Manual Therapy: 0 HOME EXERCISE PROGRAM: pt given written HEP including prone lying, hamstring stretch, prone lying (witheld 01/30/18) due to pain. Isometric hip flexion and pelvic tilt. - Charges Timed Code Treatment Minutes: 40 Total Treatment Time: 40 Procedures billed for this date of service:: hp,e-stim,ex 1 Assessment: Progressing well,pain duration and intensity is less.He troncoso beter return demo of HEP.He rep[orts relief after hamstring stretches.He has no sciatica today. Patient Education: Body/Joint mechanics, Home Exercise Program, Education of Plan of Care Short Term Goals Goal #1: Pt independent initial HEP. Goal to be met by: 02/08/18 Progress towards Goal:: Progressing Goal #2: pt rate pain <5/10 with activity Goal to be met by: 02/08/18 Progress towards Goal:: Partially Met Goal #3: Decreased muscle tightness hamstrings , piriformis to equal BLE Goal to be met by: 02/08/18 Progress towards Goal:: Progressing Goal #4: pt report no episodes of radicular pain in BLE Goal to be met by: 02/08/18 Progress towards Goal:: Met Funeral Planning Counselor Goals Goal #1: pt report ability to perform normal house hold duties w less pain Goal to be met by: 02/22/18 Progress towards goal: Progressing Goal #2: Oswestry low back pain scale < 17 Goal to be met by: 02/22/18 Goal #3: Hamstring and piriformis tightness WFL's Goal to be met by: 02/22/18 Progress towards goal: Progressing Goal #4: Pt able to ride his motorcycle with minimal knee stiffness or pain. Goal to be met by: 02/22/18 (not dsicussed today) Progress towards goal: Progressing Plan Dates of Chcf Goals: 02/22/18 Expiration date of current Insurance Approval:: 02/22/18 PLAN: Cont. PT to reduce/eliminate back pain ,return to PLOF.
--- NOTE | 2018-02-18 09:04 | RS.CXNS ---
Date of scheduled appointment: 02/18/18 Type: No Show Reason for Cancel/NS: Unknown
== END 2018-02-20 23:59 ==
PROVIDERS: ATTEND Physician Assistant
DX: M54.5 Low back pain (principal)